=== PATIENT | male | born 1965 | race African-American/Black ===

== ENCOUNTER 2016-08-17 17:41 | Inpatient (IN) | payer OTHER ==
[~2016-08-17] VITALS: Ht 177.8 cm; Wt 91.4 kg
[~2016-08-17 17:41] MED LIST: IOHEXOL-350 100 ML BOTTLE ONE; SODIUM CHLORIDE 0.9% 10ML VIAL ONE
[2016-08-17] MEDS ORDERED: SODIUM CHLORIDE 0.9% 500 ML IV ONE (18:15)
[2016-08-17 18:42] LABS: BASOPHILS % 1.3 % (0.0-2.0); EOSINOPHILS % 2.4 % (0.0-5.0); HEMOGLOBIN. 14.9 g/dL (14.0-18.0); LYMPHOCYTES % 42.9 % (20.0-50.0); MEAN CORPUSCULAR HGB CONC 33.9 g/dL (31.0-37.0); MEAN CORPUSCULAR VOLUME 94.3 fL (80.0-94.0); MEAN PLATELET VOLUME 6.8 fl (7.4-10.4); MONOCYTES % 6.9 % (2.0-8.0); NEUTROPHILS % 46.5 % (40.0-76.0); PLATELET 254 x1000/uL (130-400); RED BLOOD CELL COUNT 4.66 mill/uL (4.7-6.1); RED CELL DISTRIBUTION WIDTH 13.7 % (11.6-14.6); WHITE BLOOD COUNT 7.3 x1000/uL (4.5-11.0)
[2016-08-17 18:48] LABS: ALBUMIN 3.1 g/dL (3.4-5.0); ANION GAP 12; CALCIUM 8.5 mg/dL (8.5-10.1); CARBON DIOXIDE 28 mEq/L (21-32); CHLORIDE 107 mEq/L (98-107); INDEX HEMOLYSI 1 (1-3); INDEX ICTERIC 1 (1-4); INDEX LIPEMIC 1 (1-3); UREA NITROGEN BLOOD 15 mg/dL (7-21)
[2016-08-17 18:52] LABS: ALANINE AMINOTRANSFERASE 13 IU/L (13-61); eGFR > 60 mL/min (>60)
[2016-08-17 20:23] LABS: CLARITY URINE CLEAR (CLEAR); COLOR URINE YELLOW (YELLOW); GLUCOSE URINE NEGATIVE (NEGATIVE); KETONES URINE NEGATIVE (NEGATIVE); LEUKOCYTE ESTERASE URINE NEGATIVE (NEGATIVE); NITRITE URINE NEGATIVE (NEGATIVE); OCCULT BLOOD URINE NEGATIVE (NEGATIVE); PROTEIN URINE NEGATIVE (NEGATIVE); SPECIFIC GRAVITY URINE 1.026 (1.005-1.030)
[2016-08-17 20:38] LABS: *AMPHETAMINES SCREEN URINE NEGATIVE (NEGATIVE); *BARBITURATES SCREEN URINE NEGATIVE (NEGATIVE); *BENZODIAZEPINES SCREEN URINE NEGATIVE (NEGATIVE); *COCAINE SCREEN URINE NEGATIVE (NEGATIVE); CANNABINOID URINE SCREEN NEGATIVE (NEGATIVE); ECSTASY MDMA SCREEN URINE NEGATIVE (NEGATIVE); METHADONE URINE SCREEN NEGATIVE (NEGATIVE); OPIATES URINE SCREEN NEGATIVE (NEGATIVE); PHENCYCLIDINE URINE SCREEN NEGATIVE (NEGATIVE)
[2016-08-17] MEDS ORDERED: HEPARIN 5000 UNITS/ML VIAL IV ONE (23:15)
[2016-08-18] VITALS (26 sets, daily range): BP systolic 109–144; BP diastolic 60–101
[2016-08-18] MEDS ORDERED: MORPHINE SULFATE 2 MG/ML CPJ (NOT FOR IM USE) IV PRN
[2016-08-18 00:25] LABS: PARTIAL THROMBOPLASTIN TIME 29.6 sec (24.0-34.0); PROTHROMBIN TIME 10.7 sec
[2016-08-18] MEDS ORDERED: HEPARIN 80 UNITS/KG BOLUS IV SCH (01:00)
[2016-08-18] MEDS ORDERED: HEPARIN BOLUS PRN aPTT 37-44 IV ×2 (01:00→01:20)
[2016-08-18] MEDS ORDERED: HEPARIN BOLUS PRN aPTT <36 IV ×2 (01:00→01:19)
[2016-08-18] MEDS ORDERED: HEPARIN 25,000 UNITS PREMIX 500 ML IV SCH (01:00)
[2016-08-18] MEDS ORDERED: HEPARIN 80 UNITS/KG BOLUS IV NR (01:11)
[2016-08-18 06:57] LABS: BASOPHILS % 0.8 % (0.0-2.0); EOSINOPHILS % 2.9 % (0.0-5.0); HEMATOCRIT. 43.5 % (42.0-52.0); HEMOGLOBIN. 14.9 g/dL (14.0-18.0); LYMPHOCYTES % 39.2 % (20.0-50.0); MEAN CORPUSCULAR HEMOGLOBIN 32.1 pg (28.0-32.0); MEAN CORPUSCULAR HGB CONC 34.2 g/dL (31.0-37.0); MEAN CORPUSCULAR VOLUME 93.8 fL (80.0-94.0); MEAN PLATELET VOLUME 6.8 fl (7.4-10.4); MONOCYTES % 8.8 % (2.0-8.0); NEUTROPHILS % 48.3 % (40.0-76.0); PLATELET 271 x1000/uL (130-400); RED BLOOD CELL COUNT 4.64 mill/uL (4.7-6.1); RED CELL DISTRIBUTION WIDTH 13.6 % (11.6-14.6); WHITE BLOOD COUNT 5.5 x1000/uL (4.5-11.0)
[2016-08-18] MEDS: ENOXAPARIN 100MG/ML SYR SUBCUT SCH (14:41)
[2016-08-18] MEDS ORDERED: WARFARIN SODIUM 5MG TABLET PO NR (18:00)
[2016-08-18] MEDS ORDERED: WARFARIN SODIUM 7.5MG TABLET PO SCH (18:00)
[2016-08-19] VITALS: BP 129/88
[2016-08-19 04:00] VITALS: BP 110/70
[2016-08-19] MEDS: ENOXAPARIN 100MG/ML SYR SUBCUT SCH (05:01)
[2016-08-19 06:17] LABS: INR 1.5; PROTHROMBIN TIME 15.4 sec
[2016-08-19 08:00] VITALS: BP 117/73
[2016-08-19 12:00] VITALS: BP 120/81
[2016-08-19 14:32] VITALS: BP 111/66
[2016-08-19] MEDS ORDERED: WARFARIN SODIUM 4MG TABLET PO SCH (18:00)
== END 2016-08-19 15:20 | disposition home or self-care (01) | DRG 176 ==
LOC: ER 17:45 → MICUSO 23:19 → 8WST 08-18 18:35
PROVIDERS: ADMIT Family Medicine; ATTEND Family Medicine
DX: I26.99 Other pulmonary embolism without acute cor pulmonale (principal); E44.1 Mild protein-calorie malnutrition; E46 Unspecified protein-calorie malnutrition; I10 Essential (primary) hypertension; D53.9 Nutritional anemia, unspecified; E88.09 Other disorders of plasma-protein metabolism, not elsewhere classified; F17.210 Nicotine dependence, cigarettes, uncomplicated; Z79.01 Long term (current) use of anticoagulants; Z86.718 Personal history of other venous thrombosis and embolism; Z87.828 Personal history of other (healed) physical injury and trauma; Z68.28 Body mass index [BMI] 28.0-28.9, adult
CPT/HCPCS: 36415; 71010; 71275; 74176; 80053; 80305; 81003; 84484; 85025; 85610; 85730; 93005; 93970; 96361; 96374; 99291; A4216; J1644; J1650; J7030; J7040; Q9967

== ENCOUNTER 2024-01-05 17:00 | Inpatient (IN) | payer OTHER ==
[~2024-01-05] VITALS: Ht 175.3 cm; Wt 113.9 kg
[~2024-01-05 17:00] MED LIST changes: +AMLO2.5T45 PO; +APIX5TAB PO; -IOHEXOL-350 100 ML BOTTLE ONE; -SODIUM CHLORIDE 0.9% 10ML VIAL ONE
[2024-01-05 17:54] LABS: BASOPHILS % 0.9 % (0.0-2.0); EOSINOPHILS % 1.7 % (0.0-5.0); HEMATOCRIT. 47.4 % (42.0-52.0); HEMOGLOBIN. 15.8 g/dL (14.0-18.0); LYMPHOCYTES % 37.4 % (20.0-50.0); MEAN CORPUSCULAR HGB CONC 33.3 g/dL (31.0-37.0); MEAN PLATELET VOLUME 7.7 fl (7.4-10.4); MONOCYTES % 7.6 % (2.0-8.0); NEUTROPHILS % 52.4 % (40.0-76.0); PLATELET 215 x1000/uL (130-400); RED BLOOD CELL COUNT 4.79 mill/uL (4.7-6.1); RED CELL DISTRIBUTION WIDTH 14.8 % (11.6-14.6); WHITE BLOOD COUNT 4.4 x1000/uL (4.5-11.0)
[2024-01-05 18:00] LABS: CARBON DIOXIDE 18 mEq/L (21-32)
[2024-01-05 18:01] LABS: CALCIUM 8.6 mg/dL (8.7-10.4)
[2024-01-05 18:03] LABS: CHLORIDE 113 mEq/L (98-107); POTASSIUM 3.7 mEq/L (3.5-5.1); SODIUM 138 mEq/L (136-145)
[2024-01-05 18:05] LABS: CREATININE 1.4 mg/dL (0.6-1.3); GLUCOSE 148 mg/dL (70-105); UREA NITROGEN BLOOD 15 mg/dL (9-23)
[2024-01-05 18:13] LABS: TROPONIN I HIGH SENSITIVITY 15 ng/L (3.0-53)
[2024-01-05 19:13] LABS: CLARITY URINE CLEAR (CLEAR); COLOR URINE YELLOW (YELLOW); GLUCOSE URINE NEGATIVE (NEGATIVE); KETONES URINE NEGATIVE (NEGATIVE); LEUKOCYTE ESTERASE URINE NEGATIVE (NEGATIVE); NITRITE URINE NEGATIVE (NEGATIVE); OCCULT BLOOD URINE NEGATIVE (NEGATIVE); PH URINE 5.5 (4.5-8.0); PROTEIN URINE 1+ (NEGATIVE); SPECIFIC GRAVITY URINE 1.011 (1.005-1.030)
[2024-01-05 19:33] LABS: BACTERIA URINE NONE SEEN; RBC URINE NONE SEEN /hpf (0-2); SQUAMOUS EPITHELIAL CELL URINE RARE /lpf (RARE/1+); WBC URINE NONE SEEN /hpf (0-2)
[2024-01-05 19:37] LABS: TROPONIN I HIGH SENSITIVITY 15 ng/L (3.0-53)
[2024-01-06 12:00] VITALS: BP 136/91; PULSE 78; RESP 17; TEMP 36.55848; TEMP 36.5848; O2SAT 95
[2024-01-06] MEDS ORDERED: FURO-152 PO (12:48)
[2024-01-06] MEDS ORDERED: ATOR10TA69 PO (12:48)
[2024-01-06] MEDS ORDERED: ENOX100D4 SQ (12:56)
[2024-01-06] MEDS ORDERED: ACETAMINOPHEN 325MG TABLET PO PRN (15:45)
[2024-01-06] MEDS ORDERED: CLONIDINE 0.1MG TABLET PO PRN (15:45)
[2024-01-06] MEDS ORDERED: ONDANSETRON HCL 4MG/2ML INJ IV PRN (15:45)
[2024-01-06 16:00] VITALS: BP 117/81; PULSE 85; RESP 19; TEMP 36.61404; O2SAT 96
[2024-01-06 17:06] LABS: HEPATITIS B SURFACE ANTIGEN NEGATIVE (Negative)
[2024-01-06 17:28] LABS: HEPATITIS C AB NON REACTIVE (Neg) (Negative)
[2024-01-06] MEDS: ENOXAPARIN 120MG/0.8ML SYR SUBCUT NR (18:13)
[2024-01-06] MEDS ORDERED: ERGO1250 (18:52)
[2024-01-06 19:05] LABS: INR 1.1; PROTHROMBIN TIME 12.1 sec (9.6-11.0)
[2024-01-06 20:00] VITALS: BP 117/87; PULSE 87; RESP 18; TEMP 36.72516; O2SAT 96
[2024-01-06] MEDS ORDERED: APIXABAN 5 MG TABLET PO SCH (21:00)
[2024-01-06 22:34] LABS: *AMPHETAMINES SCREEN URINE NEGATIVE (NEGATIVE); *BARBITURATES SCREEN URINE NEGATIVE (NEGATIVE); *BENZODIAZEPINES SCREEN URINE NEGATIVE (NEGATIVE); *COCAINE SCREEN URINE NEGATIVE (NEGATIVE); CANNABINOID URINE SCREEN NEGATIVE (NEGATIVE); METHADONE URINE SCREEN NEGATIVE (NEGATIVE); OPIATES URINE SCREEN NEGATIVE (NEGATIVE); PHENCYCLIDINE URINE SCREEN NEGATIVE (NEGATIVE)
[2024-01-06] MEDS ORDERED: IOHEXOL-350 100 ML BOTTLE ONE (23:41)
[2024-01-07] VITALS: BP 130/94; PULSE 72; RESP 18; TEMP 36.3918; O2SAT 97
[2024-01-07 00:20] LABS: CREATINE KINASE MB FRACTION 3.8 ng/mL (0.5-3.6)
[2024-01-07 04:00] VITALS: BP 119/88; PULSE 78; RESP 18; TEMP 35.61396; O2SAT 97
[2024-01-07] MEDS: ENOXAPARIN 120MG/0.8ML SYR SUBCUT SCH (06:21)
[2024-01-07 06:40] LABS: CHLORIDE 111 mEq/L (98-107); POTASSIUM 4.3 mEq/L (3.5-5.1); SODIUM 139 mEq/L (136-145)
[2024-01-07 06:41] LABS: CALCIUM 9.2 mg/dL (8.7-10.4); CARBON DIOXIDE 19 mEq/L (21-32)
[2024-01-07 06:45] LABS: CREATINE KINASE MB FRACTION 4.2 ng/mL (0.5-3.6); TROPONIN I HIGH SENSITIVITY 16 ng/L (3.0-53)
[2024-01-07 06:46] LABS: CREATININE 1.3 mg/dL (0.6-1.3); GLUCOSE 135 mg/dL (70-105); UREA NITROGEN BLOOD 20 mg/dL (9-23)
[2024-01-07 06:47] LABS: BASOPHILS % 0.7 % (0.0-2.0); EOSINOPHILS % 2.9 % (0.0-5.0); HEMATOCRIT. 48.5 % (42.0-52.0); HEMOGLOBIN. 15.6 g/dL (14.0-18.0); LYMPHOCYTES % 43.9 % (20.0-50.0); MEAN CORPUSCULAR HEMOGLOBIN 31.9 pg (28.0-32.0); MEAN CORPUSCULAR HGB CONC 32.1 g/dL (31.0-37.0); MEAN CORPUSCULAR VOLUME 99.5 fL (80.0-94.0); MEAN PLATELET VOLUME 8.5 fl (7.4-10.4); MONOCYTES % 11.3 % (2.0-8.0); NEUTROPHILS % 41.2 % (40.0-76.0); PLATELET 201 x1000/uL (130-400); RED BLOOD CELL COUNT 4.88 mill/uL (4.7-6.1); RED CELL DISTRIBUTION WIDTH 15.1 % (11.6-14.6); WHITE BLOOD COUNT 3.7 x1000/uL (4.5-11.0)
[2024-01-07 06:48] LABS: CREATINE KINASE 226 IU/L (46-171)
[2024-01-07 08:00] VITALS: BP 141/70; PULSE 71; RESP 16; TEMP 36.83628; O2SAT 95
[2024-01-07] MEDS: AMLODIPINE 2.5MG TABLET PO SCH (08:31)
[2024-01-07 09:32] LABS: BG BASE EXCESS -6.5 mmol/L (-2.0-2.0); BG CARBOXYHEMOGLOBIN 0.3 % (0.5-1.5); BG DEOXYHEMOGLOBIN 7.4 % (0.0-5.0); BG FRACTION INSPIRED OXYGEN 21; BG HCO3 ACT 16.3 mmol/L (22.0-26.0); BG METHEMOGLOBIN 0.3 % (0.0-1.5); BG OXYGEN SATURATION 92.6 % (92.0-98.5); BG PCO2 27.5 mmHg (35.0-45.0); BG PH 7.392 (7.350-7.450); BG PO2 69.2 mmHg (75.0-100.0); BG SAMPLE SITE LEFT RADIAL; BG TOTAL HEMOGLOBIN 18.3 g/dL (12.0-18.0); BG VENT MODE ROOM AIR
[2024-01-07 12:00] VITALS: BP 129/88; PULSE 77; RESP 18; TEMP 36.05844; O2SAT 95
[2024-01-07 16:00] VITALS: BP 129/84; PULSE 84; RESP 18; TEMP 37.11408; O2SAT 95
[2024-01-07 20:00] VITALS: BP 124/88; PULSE 81; RESP 18; TEMP 36.50292; O2SAT 98
[2024-01-08] VITALS: BP 124/86; PULSE 77; RESP 18; TEMP 35.78064; O2SAT 96
[2024-01-08 04:00] VITALS: BP 119/87; PULSE 82; RESP 18; TEMP 35.78064; O2SAT 96
[2024-01-08 08:15] VITALS: BP 140/92; PULSE 77; RESP 18; TEMP 35.8362; O2SAT 98
[2024-01-08 12:00] VITALS: BP 137/92; PULSE 73; RESP 18; TEMP 36.00288; O2SAT 100
[2024-01-08 16:00] VITALS: BP 130/97; PULSE 77; RESP 16; TEMP 35.8362; O2SAT 97
[2024-01-09 08:00] VITALS: BP 146/50; PULSE 76; RESP 18; TEMP 36.61404; O2SAT 96
[2024-01-09 12:00] VITALS: BP 126/93; PULSE 72; RESP 18; TEMP 36.3918; O2SAT 97
[2024-01-09] MEDS ORDERED: HEPARIN 1000 UNITS/ML 10ML ONE (13:04)
[2024-01-09] MEDS ORDERED: IODIXANOL 320MG/ML 100 ML BOTTLE IV ONE (13:04)
[2024-01-09] MEDS ORDERED: LIDOCAINE HCL 1% 20ML VIAL ONE ×2 (13:04→13:11)
[2024-01-09] MEDS ORDERED: MIDAZOLAM HCL 2 MG/2 ML VIAL ONE ×2 (14:44→15:14)
[2024-01-09] MEDS ORDERED: FENTANYL CITRATE/PF 50MCG/ML 2ML VIAL ONE (14:44)
[2024-01-09 18:00] VITALS: BP 133/93; PULSE 77; RESP 18; TEMP 36.44736; O2SAT 96
[2024-01-09 20:00] VITALS: BP 102/74; PULSE 82; RESP 19; TEMP 36.28068; O2SAT 96
[2024-01-09 22:08] LABS: BASOPHILS % 0.9 % (0.0-2.0); EOSINOPHILS % 2.1 % (0.0-5.0); HEMATOCRIT. 48.5 % (42.0-52.0); HEMOGLOBIN. 16.1 g/dL (14.0-18.0); LYMPHOCYTES % 37.8 % (20.0-50.0); MEAN CORPUSCULAR HEMOGLOBIN 32.9 pg (28.0-32.0); MEAN CORPUSCULAR HGB CONC 33.2 g/dL (31.0-37.0); MEAN CORPUSCULAR VOLUME 98.8 fL (80.0-94.0); MEAN PLATELET VOLUME 8.2 fl (7.4-10.4); MONOCYTES % 8.3 % (2.0-8.0); NEUTROPHILS % 50.9 % (40.0-76.0); PLATELET 208 x1000/uL (130-400); RED BLOOD CELL COUNT 4.91 mill/uL (4.7-6.1); RED CELL DISTRIBUTION WIDTH 15.1 % (11.6-14.6); WHITE BLOOD COUNT 4.2 x1000/uL (4.5-11.0)
[2024-01-09 22:10] LABS: CHLORIDE 111 mEq/L (98-107); POTASSIUM 4.5 mEq/L (3.5-5.1); SODIUM 139 mEq/L (136-145)
[2024-01-09 22:11] LABS: CARBON DIOXIDE 21 mEq/L (21-32)
[2024-01-09 22:16] LABS: CREATININE 1.5 mg/dL (0.6-1.3); GLUCOSE 112 mg/dL (70-105); INR 1.1; PROTHROMBIN TIME 12.4 sec (9.6-11.0)
[2024-01-09 22:17] LABS: UREA NITROGEN BLOOD 18 mg/dL (9-23)
[2024-01-09 22:18] LABS: ALANINE AMINOTRANSFERASE 14 IU/L (10-49); ALBUMIN 3.7 g/dL (3.2-4.8); ASPARTATE AMINOTRANSFERASE 16 IU/L (<34); BILIRUBIN DIRECT 0.3 mg/dL (<=3.0); CREATINE KINASE 113 IU/L (46-171)
[2024-01-09 22:19] LABS: BILIRUBIN TOTAL 1.1 mg/dL (0.1-1.0); PROTEIN TOTAL 6.5 g/dL (6.0-8.3)
[2024-01-10] VITALS: BP 123/88; PULSE 74; RESP 18; TEMP 36.33624; O2SAT 100
[2024-01-10 04:00] VITALS: BP 135/91; PULSE 76; RESP 18; TEMP 36.44736; O2SAT 96
[2024-01-10 06:41] LABS: CALCIUM 9.3 mg/dL (8.7-10.4); CHLORIDE 108 mEq/L (98-107); SODIUM 138 mEq/L (136-145)
[2024-01-10 06:42] LABS: CARBON DIOXIDE 22 mEq/L (21-32)
[2024-01-10 06:44] LABS: BASOPHILS % 0.9 % (0.0-2.0); EOSINOPHILS % 1.8 % (0.0-5.0); HEMATOCRIT. 50.4 % (42.0-52.0); HEMOGLOBIN. 16.7 g/dL (14.0-18.0); LYMPHOCYTES % 46.4 % (20.0-50.0); MEAN CORPUSCULAR HEMOGLOBIN 32.7 pg (28.0-32.0); MEAN CORPUSCULAR HGB CONC 33.1 g/dL (31.0-37.0); MEAN CORPUSCULAR VOLUME 98.9 fL (80.0-94.0); MEAN PLATELET VOLUME 8.6 fl (7.4-10.4); MONOCYTES % 10.3 % (2.0-8.0); NEUTROPHILS % 40.6 % (40.0-76.0); PLATELET 204 x1000/uL (130-400); RED BLOOD CELL COUNT 5.09 mill/uL (4.7-6.1); RED CELL DISTRIBUTION WIDTH 14.8 % (11.6-14.6); WHITE BLOOD COUNT 4.1 x1000/uL (4.5-11.0)
[2024-01-10 06:48] LABS: CREATININE 1.2 mg/dL (0.6-1.3); GLUCOSE 98 mg/dL (70-105); UREA NITROGEN BLOOD 18 mg/dL (9-23)
[2024-01-10 08:00] VITALS: BP 126/87; PULSE 84; RESP 20; TEMP 36.22512; O2SAT 93
[2024-01-10] MEDS ORDERED: RIVA20TA MT (11:12)
[2024-01-10] MEDS ORDERED: REV20 MT (11:12)
[2024-01-10 12:00] VITALS: BP 118/78; PULSE 77; RESP 18; TEMP 36.33624; O2SAT 95
[2024-01-10 12:21] VITALS: BP 133/99; PULSE 77; TEMP 97.4; O2SAT 95
== END 2024-01-10 12:40 | disposition home or self-care (01) | DRG 176 ==
LOC: ER 17:00 → 5WST 21:38 → 7EST 01-06 11:27
PROVIDERS: ADMIT Internal Medicine; ATTEND Internal Medicine
PROC: 4A023N6 Measurement of Cardiac Sampling and Pressure, Right Heart, Percutaneous Approach (ICD-10-PCS; principal; 2024-01-09)
PROC: B31SYZZ Fluoroscopy of Right Pulmonary Artery using Other Contrast (ICD-10-PCS; 2024-01-09)
PROC: B31TYZZ Fluoroscopy of Left Pulmonary Artery using Other Contrast (ICD-10-PCS; 2024-01-09)
DX: I26.99 Other pulmonary embolism without acute cor pulmonale (principal); D68.59 Other primary thrombophilia; R55 Syncope and collapse; I27.82 Chronic pulmonary embolism; E78.5 Hyperlipidemia, unspecified; Z20.822 Contact with and (suspected) exposure to COVID-19; R09.02 Hypoxemia; I10 Essential (primary) hypertension; Z79.01 Long term (current) use of anticoagulants
CPT/HCPCS: 36415; 36600; 71045; 71275; 75741; 80048; 80076; 80305; 81003; 82375; 82550; 82553; 82805; 83880; 84484; 85025; 85379; 86705; 87340; 87426; 93005; 93306; 93880; 93970; 97165; 97535; 99285; C1769; C1887; C1893; J1644; J1650; J2250; J3010; J3490; Q9967